=== PATIENT | male | born 1935 | race Caucasian/White ===

== ENCOUNTER 2021-01-29 22:35 | Inpatient (IN) ==
[2021-01-29] MEDS ORDERED: ONDANSETRON 4 MG/2 ML VIAL IV PRN (22:51)
[2021-01-29] MEDS ORDERED: PANTOPRAZOLE 40 MG VIAL IV ONE (22:51)
--- NOTE | 2021-01-29 22:51 | Emergency Department Note ---
HPI General Chief complaint: Rectal Bleed Stated complaint: rectal bleeding Time Seen by Provider: 01/29/21 22:39 Source: EMS Mode of arrival: EMS Limitations: no limitations History of Present Illness HPI Narrative: Narrative: Patient is an 85-year-old male who presents with chief complaint of GI bleed. Patient presented to the emergency department via EMS after he had a large dark tarry stool and coffee-ground emesis at home. Patient was seen here earlier today for hemoptysis, had a negative work-up for PE and was diagnosed with possible pneumonia and discharged home. He did not have any other episodes or other complaints of GI bleeding issues before that, but upon return here this evening he had dark tarry stool and coffee-ground emesis consistent with likely GI bleed. He states he otherwise feels fine has no complaints. Denies any fever, headache, cough, shortness of breath, chest pain, abdominal pain, changes in urinary habits. Related Data Home Medications Medication Instructions Recorded Confirmed multivitamin 1 tab-cap PO QDAY 05/25/15 01/29/21 aspirin 81 mg tablet,delayed 81 mg PO QDAY 07/16/17 01/29/21 release dextrin [Fiber (dextrin)] See Rx Instructions PO .COMPLEX 07/16/17 01/29/21 omega 2-btq-nsd-fish oil [Severn-3 PO 07/16/17 01/29/21 Fish Oil] stool softner PO 07/16/17 01/29/21 hydrocortisone-pramoxine 2.5 %-1 % 1 applic TOPICAL g 10/30/20 01/29/21 rectal cream atorvastatin 20 mg tablet 20 mg PO QDAY 11/07/20 01/29/21 donepezil 10 mg tablet See Rx Instructions PO QDAY tab 11/07/20 01/29/21 memantine 21 mg capsule mg PO QDAY ea 11/07/20 01/29/21 sprinkle,extended release 24hr csxhpfebbukl-pfdilhdc-yktaos PO QDAY 11/07/20 01/29/21 [Centrum Silver] nortriptyline 10 mg capsule mg PO QDAY cap 11/07/20 01/29/21 sennosides 8.6 mg-docusate sodium 2 tab-cap PO QAM tab 11/07/20 01/29/21 50 mg tablet (Senna with Docusate Sodium) tamsulosin 0.4 mg capsule mg PO QPM cap 11/07/20 01/29/21 Previous Rx's Medication Instructions Recorded omeprazole 40 mg capsule,delayed 40 mg PO QDAY #90 cap 07/16/17 release atorvastatin 80 mg tablet 40 mg PO QDAY #45 tab 08/17/17 hydrocodone 5 mg-acetaminophen 325 1 tab PO Q4H PRN #60 tab MDD 2.5 12/05/20 mg tablet doxycycline hyclate 100 mg capsule 100 mg PO BID 7 Days #14 cap 01/29/21 Allergies Allergy/AdvReac Type Severity Reaction Status Date / Time No Known Drug Allergies Allergy Verified 01/29/21 15:40 Review of Systems ROS ROS Narrative: Narrative: All systems ED: reviewed and negative except as stated. 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) Encounter for Postoperative Care (Chronic) URI (upper respiratory infection) (Chronic) Low back pain (Chronic) Exposure to COVID-19 virus (Chronic) Osteoporosis (Chronic) Constipation (Chronic) Rheumatic fever (Chronic) Peptic ulcer disease (Chronic) Hypertension, essential (Chronic) Hyperlipidemia (Chronic) Hemorrhoids (Chronic) COPD (chronic obstructive pulmonary disease) (Chronic) Medical History Age-related osteoporosis with current pathological fracture, vertebra(e), initial encounter for fracture BPH (benign prostatic hyperplasia) Constipation COPD (chronic obstructive pulmonary disease) Displacement of lumbar intervertebral disc without myelopathy Encounter for Postoperative Care Exposure to COVID-19 virus Gastroesophageal reflux (06/03/13) Hematochezia (12/22/12) Hemorrhoids Uncomplicated, internal and external Hyperlipidemia Hypertension, essential Low back pain Memory impairment Osteoporosis Peptic ulcer disease Personal history of colonic polyps Rectal bleeding Rheumatic fever As a child Thoracolumbar back pain Unilateral inguinal hernia URI (upper respiratory infection) Vascular dementia Surgical History H/O colonoscopy (05/18/14) Dr. Jean Baptiste - 2015 H/O esophagogastroduodenoscopy (05/18/12) Dos Santos's, ? dysplasia, Schatzki's ring H/O hemorrhoidectomy (01/03/13) Prolapsed internal hemorrhoids, grade 3 History of hernia surgery 08/17/2015 right inguinal with mesh graft History of right inguinal hernia repair (08/17/15) History of tonsillectomy and adenoidectomy 194 Hx of appendectomy 1950 Family History Mother Malignant neoplasm of bone History of open heart surgery Cardiac disease Father Cardiac disease History of open heart surgery Neoplasm of lung brother Cerebrovascular accident (CVA) Social History Smoking Status: Former smoker Alcohol Intake Frequency: a few times a month Substance Use: does not use Exam Narrative Narrative: Narrative: Patient is sitting up in bed, talking normally and appropriately. He does not appear to be in acute discomfort or distress General Limitations: no limitations Head Head: Present atraumatic and normocephalic Eye Eye: Present normal appearance, PERRL and EOMI; Absent scleral icterus or conjunctival injection ENT ENT: Present normal oropharynx and mucous membranes moist Neck Neck: Present full ROM and trachea midline; Absent tenderness or lymphadenopathy Chest Chest: Present symmetric chest wall rise Respiratory Respiratory: Present normal lung sounds bilaterally; Absent respiratory distress, rales/crackles, wheezes, stridor or accessory muscle use Cardiovascular Cardiovascular: Present regular rate and normal rhythm; Absent systolic murmur or diastolic murmur Adbominal Abdominal: Present soft; Absent tenderness, guarding, rebound, rigidity or mass Extremities Extremities: Absent pedal edema, pretibial edema or calf tenderness Back Back: Absent CVA tenderness (R), CVA tenderness (L) or spinous process tenderness Neurological Neurological: Present alert and oriented X3 Psychiatric Psychiatric: Present normal affect and normal mood Skin Skin: Present warm (WNL) and dry Course Vital Signs Vital signs: Vital Signs Temperature 97.6 F 01/29/21 22:35 Pulse Rate 125 H 01/29/21 22:35 Respiratory Rate 18 01/29/21 22:35 Blood Pressure 103/75 01/29/21 22:35 Pulse Oximetry (%) 96 01/29/21 22:35 Temperature 97.6 F 01/29/21 22:35 Pulse Rate 125 H 01/29/21 22:35 Respiratory Rate 18 01/29/21 22:35 Blood Pressure 103/75 01/29/21 22:35 Pulse Oximetry (%) 96 01/29/21 22:35 MDM MDM Narrative Medical decision making narrative: Narrative: Patient presented with history of physical exam concerning for possible GI bleed. At this time patient has obvious smell of GI bleed and dark tarry stool noted. Abdominal exam is benign with no significant rebound or guarding. He does have some mild tachycardia in the 110s to 120s, but otherwise is very well- appearing. He does not have any abdominal pain, and states he is otherwise comfortable. I discussed the case with the on-call surgeon Dr. Lyle, who agreed with the plan of admission at this time to do a scope tomorrow to evaluate his GI bleeding. We have given the patient Protonix and type and crossed the patient for packed red blood cells as directed by the surgeon, and he will be admitted overnight until he can be further evaluated. Patient is agreeable to the plan at this time and has no further concerns or questions Discharge Plan Patient/Caregiver Discharge Instructions Pt seen by BANDER/PA only: No Clinical Impression: GI bleed Patient Disposition: Xfer As Inpt ([facility]) Follow up with: Bobo Marshall MD [Primary Care Provider] - Prescriptions: No Action atorvastatin 80 mg tablet 40 mg PO QDAY Qty: 45 3RF multivitamin tablet 1 tab-cap PO QDAY 0RF aspirin 81 mg tablet,delayed release (DR/EC) 81 mg PO QDAY 0RF dextrin See Rx Instructions PO .COMPLEX 0RF Label Comments: PO BID Rx Instructions: PO BID omega 1-afc-jjr-fish oil PO 0RF stool softner PO 0RF omeprazole 40 mg capsule,delayed release(DR/EC) 40 mg PO QDAY Qty: 90 3RF Rx Instructions: swallow whole; do not crush, chew, dissolve, cut, break atorvastatin 20 mg tablet 20 mg PO QDAY 0RF yuaturijjfmi-wyuhexua-vxdmzx [Centrum Silver] PO QDAY 0RF sennosides-docusate sodium [Senna with Docusate Sodium] 8.6-50 mg tablet 2 tab-cap PO QAM 0RF hydrocodone-acetaminophen 5-325 mg tablet 1 tab PO Q4H MDD 2.5 PRN (Reason: pain) Qty: 60 0RF Rx Instructions: Take one half to one tab po q4 hr prn pain *Must last 30 days* hydrocortisone-pramoxine 2.5-1 % cream 1 applic topical 0RF donepezil 10 mg tablet See Rx Instructions PO QDAY 0RF Rx Instructions: 10mg, 2 tabs PO daily; memantine 21 mg capsule,sprinkle,ER 24hr PO QDAY 0RF nortriptyline 10 mg capsule PO QDAY 0RF tamsulosin 0.4 mg capsule PO QPM 0RF doxycycline hyclate 100 mg capsule 100 mg PO BID 7 Days Qty: 14 0RF
[2021-01-29] MEDS ORDERED: 0.9 % SODIUM CHLORIDE 250 ML IV SCH (23:00)
[2021-01-30 00:20] LABS: INR 1.2 (0.9-1.1); Partial Thromboplastin Time 30.6 sec (20.0-37.0); Prothrombin Time 15.3 sec (11.9-14.5)
[2021-01-30] MEDS: 0.9 % SODIUM CHLORIDE 10 ML SYRINGE IV SCH ×3 (04:38→20:01)
[2021-01-30 09:09] LABS: Basophils # (Auto) 0.02 K/mcL (0.00-0.30); Basophils % (Auto) 0.2 % (0.0-2.0); Eosinophils # (Auto) 0 K/mcL (0.00-0.70); Eosinophils % (Auto) 0 % (0.0-7.0); Hemoglobin 10.3 g/dL (13.7-17.5); Lymphocytes # (Auto) 1.27 K/mcL (1.50-4.80); Lymphocytes % (Auto) 11.8 % (15.5-49.0); Mean Cell Volume 96.9 fL (80.0-100.0); Mean Corpuscular HGB Conc 33.2 g/dL (31.0-36.0); Mean Platelet Volume 11.3 fL (7.4-10.4); Monocytes # (Auto) 0.34 K/mcL (0.10-0.90); Monocytes % (Auto) 3.2 % (1.0-12.0); Neutrophils % (Auto) 84.8 % (38.0-78.0); Platelet Count 201 K/mcL (140-440); Red Cell Distribution Width 13.6 % (11.5-14.5); WBC 10.8 K/mcL (4.5-11.0)
[2021-01-30 09:21] LABS: Blood Urea Nitrogen 69 mg/dL (8-23); Calcium 9.3 mg/dL (8.6-10.4); Carbon Dioxide 19 mmol/L (22-30); Chloride 113 mmol/L (96-108); Glomerular Filtration Rate 61; Glucose 121 mg/dL (70-105)
[2021-01-30] MEDS: SUCRALFATE 1 GM/10 ML ORAL.SUSP PO SCH ×3 (09:28→20:00)
[2021-01-30] MEDS: PANTOPRAZOLE 80 MG in 0.9 % SODIUM CHLORIDE 100 ML IV SCH ×2 (09:28→19:59)
[2021-01-30] MEDS: LACTATED RINGERS 1,000 ML IV SCH ×2 (09:29→18:08)
--- NOTE | 2021-01-30 09:36 | General Surg History&Physical ---
HPI History of Present Illness Patient information: Note initiated : 01/30/21 at 9:29 am Service Date, if different from initiated Date: [] Patient: Sameer Bowden a 85 y/o M admitted on 01/30/21 for rectal bleeding. Chief Complaint: [] Chief complaint: Upper GI bleeding History of present illness: Mr. Bowden is a 85 year old M who presented to the emergency room on early 29 January 2021 with complaint of hemoptysis. He had chest x-ray which showed some atelectasis and a CT angio of the chest which was nondiagnostic for pulmonary embolus. He is hemogram was stable so he was discharged home with a presumptive diagnosis of possible pneumonia. He developed coffee-ground emesis and passage of melena and was readmitted to the emergency room with presumptive GI bleed. Patient has been clinically stable and his hemoglobin was 12.5. Hemoglobin has dropped to 10 overnight. He is having some dark stools with some maroon-colored stools. He has been started on IV pantoprazole. Review of Systems All systems: reviewed and no additional remarkable complaints except as stated (Patient has significant dementia and does not answer questions appropriately) PFSH PFS All Active Problems (Updated 01/30/21 @ 09:35 by Le Lyle MD) Upper GI bleed (Acute) Hemoptysis (Acute) Dehydration (Acute) Pneumonia (Acute) GI bleed (Acute) Hemoptysis (Acute) Age-related osteoporosis with current pathological fracture, vertebra(e), initial encounter for fracture (Acute) Thoracolumbar back pain (Acute) BPH (benign prostatic hyperplasia) (Chronic) Memory impairment (Chronic) Vascular dementia (Chronic) 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) Encounter for Postoperative Care (Chronic) URI (upper respiratory infection) (Chronic) Low back pain (Chronic) Exposure to COVID-19 virus (Chronic) Osteoporosis (Chronic) Constipation (Chronic) Rheumatic fever (Chronic) Peptic ulcer disease (Chronic) Hypertension, essential (Chronic) Hyperlipidemia (Chronic) Hemorrhoids (Chronic) COPD (chronic obstructive pulmonary disease) (Chronic) Medical History Age-related osteoporosis with current pathological fracture, vertebra(e), initial encounter for fracture BPH (benign prostatic hyperplasia) Constipation COPD (chronic obstructive pulmonary disease) Displacement of lumbar intervertebral disc without myelopathy Encounter for Postoperative Care Exposure to COVID-19 virus Gastroesophageal reflux (06/03/13) Hematochezia (12/22/12) Hemorrhoids Uncomplicated, internal and external Hyperlipidemia Hypertension, essential Low back pain Memory impairment Osteoporosis Peptic ulcer disease Personal history of colonic polyps Rectal bleeding Rheumatic fever As a child Thoracolumbar back pain Unilateral inguinal hernia URI (upper respiratory infection) Vascular dementia Surgical History H/O colonoscopy (05/18/14) Dr. Jean Baptiste - 2015 H/O esophagogastroduodenoscopy (05/18/12) Dos Santos's, ? dysplasia, Schatzki's ring H/O hemorrhoidectomy (01/03/13) Prolapsed internal hemorrhoids, grade 3 History of hernia surgery 08/17/2015 right inguinal with mesh graft History of right inguinal hernia repair (08/17/15) History of tonsillectomy and adenoidectomy 1945 Hx of appendectomy 1950 Family History Mother Malignant neoplasm of bone History of open heart surgery Cardiac disease Father Cardiac disease History of open heart surgery Neoplasm of lung brother Cerebrovascular accident (CVA) Social History marital status: education level: high school occupational status: employed and retired smoking status: Former smoker alcohol intake frequency: a few times a month substance use type: does not use MEDS/ALLERGIES Home Medications and Allergies Home Medications Medication Instructions Recorded Confirmed Type multivitamin 1 tab-cap PO QDAY 05/25/15 01/30/21 History aspirin 81 mg tablet,delayed 81 mg PO QDAY 07/16/17 01/30/21 History release omega 3-wtw-vqn-fish oil [Dahinda-3 See Protocol PO DAILY 07/16/17 01/30/21 History Fish Oil] omeprazole 40 mg capsule,delayed 40 mg PO QDAY #90 cap 07/16/17 01/30/21 Rx release atorvastatin 20 mg tablet 20 mg PO QDAY 11/07/20 01/30/21 History donepezil 10 mg tablet See Rx Instructions PO QDAY tab 11/07/20 01/30/21 History ybnihtutuaqj-efpufpcf-vknmvl See Rx Instructions .ROUTE .COMPLEX 11/07/20 01/30/21 History [Centrum Silver] nortriptyline 10 mg capsule See Protocol PO QDAY cap 11/07/20 01/30/21 History doxycycline hyclate 100 mg capsule 100 mg PO BID 7 Days #14 cap 01/29/21 01/30/21 Rx Allergies Allergy/AdvReac Type Severity Reaction Status Date / Time No Known Drug Allergies Allergy Verified 01/29/21 15:40 Physical Examination Vital Signs Vital signs: Temp Pulse Resp BP Pulse Ox 98.0 F 104 H 18 114/81 98 01/30/21 08:00 01/30/21 08:00 01/30/21 08:00 01/30/21 08:00 01/30/21 08:00 General physical appearance General physical exam: well developed, well nourished, no distress, no pain and chronically ill Eyes Eye exam: PERRL and normal ocular movement ENT ENT exam: normal pinna, normal nares, normal mucosa, decreased hearing and poor fdc Head Head exam IM: Present atraumatic, normal inspection and normocephalic Neck Neck exam: no masses, no bruits, trachea midline, no lymphadenopathy and no venous distension Cardiovascular Cardiovascular exam IM: Present normal rate and rhythm, RRR, +S1 and +S2; Absent gallop or JVD Respiratory Respiratory exam: normal expansion, normal respiratory effort and clear to auscultation Abdomen Abdomen: Present soft, non tender and bowel sounds (Normal bowel sounds) Integumentary Integumentary: Present no rash, no growths and no abnormal pigmentation Neurologic Neurologic: Present normal coordination, normal sensation, disoriented, confused and memory loss Musculoskeletal Musculoskeletal: Present normal gait and normal posture Psychiatric Psychiatric: Absent oriented to time, oriented to person, oriented to place, speech is normal or memory intact Results Labs Result diagrams: 01/30/21 06:02 01/30/21 06:02 Labs: Abnormal lab results 01/29/21 01/30/21 01/30/21 Range/Units 23:23 06:02 06:02 RBC 3.20 L (4.63-6.08) M/mcL Hgb 10.3 L (13.7-17.5) g/dL Hct 31.0 L (40.1-51.0) % MPV 11.3 H (7.4-10.4) fL Neut % (Auto) 84.8 H (38.0-78.0) % Lymph % (Auto) 11.8 L (15.5-49.0) % Lymph # (Auto) 1.27 L (1.50-4.80) K/mcL Absolute Neutrophils 9.16 H (1.80-8.00) K/mcL PT 15.3 H (11.9-14.5) sec INR 1.2 H (0.9-1.1) Chloride 113 H (96-108) mmol/L Carbon Dioxide 19 L (22-30) mmol/L BUN 69 H (8-23) mg/dL Glucose 121 H (70-105) mg/dL Diabetes panel 01/30/21 Range/Units 06:02 Sodium 143 (133-145) mmol/L Potassium 4.4 (3.3-5.1) mmol/L Chloride 113 H (96-108) mmol/L Carbon Dioxide 19 L (22-30) mmol/L BUN 69 H (8-23) mg/dL Creatinine 1.1 (0.7-1.2) mg/dL Glucose 121 H (70-105) mg/dL Calcium 9.3 (8.6-10.4) mg/dL Calcium panel 01/30/21 Range/Units 06:02 Calcium 9.3 (8.6-10.4) mg/dL Pituitary panel 01/30/21 Range/Units 06:02 Sodium 143 (133-145) mmol/L Potassium 4.4 (3.3-5.1) mmol/L Chloride 113 H (96-108) mmol/L Carbon Dioxide 19 L (22-30) mmol/L BUN 69 H (8-23) mg/dL Creatinine 1.1 (0.7-1.2) mg/dL Glucose 121 H (70-105) mg/dL Calcium 9.3 (8.6-10.4) mg/dL Adrenal panel 01/30/21 Range/Units 06:02 Sodium 143 (133-145) mmol/L Potassium 4.4 (3.3-5.1) mmol/L Chloride 113 H (96-108) mmol/L Carbon Dioxide 19 L (22-30) mmol/L BUN 69 H (8-23) mg/dL Creatinine 1.1 (0.7-1.2) mg/dL Glucose 121 H (70-105) mg/dL Calcium 9.3 (8.6-10.4) mg/dL All other labs normal. A/P Assessment and plan (1) Upper GI bleed: Status: Acute (2) Vascular dementia: Status: Chronic (3) Hematochezia: Status: Resolved (4) Peptic ulcer disease: Status: Chronic (5) Hypertension, essential: Status: Chronic (6) COPD (chronic obstructive pulmonary disease): Status: Chronic Qualifiers: Emphysema type: unspecified Narrative A/P Narrative: Patient is started on IV pantoprazole He will be given Carafate 4 times daily His family member has been counseled for upper endoscopy which will be performed later today He will be transfused as needed Time Spent With Patient Time: Total time spent is greater than 50% in coordination of care (as documented) at patient's floor/unit and/or counseling patient:
[2021-01-30] MEDS ORDERED: GLYCOPYRROLATE 0.2 MG/ML VIAL IV ONE (14:14)
[2021-01-30] MEDS ORDERED: KETAMINE 50 MG/ML Syringe (ANEST) IV ONE (14:14)
[2021-01-30] MEDS ORDERED: PROPOFOL 200 MG/20 ML VIAL IV ONE (14:14)
--- NOTE | 2021-01-30 14:41 | Brief Operative Note ---
Brief Operative Note Date of procedure: 01/30/21 Pre-op diagnosis: upper gastrointestinal bleeding Post-op diagnosis: other (hiatal hernia ;distal esophagitis with ulceration;acute gastroduodenitis) Procedure: EGD Grafts/Implants: No Anesthesia: MAC Findings: SUPERFICIAL INFLAMMATION IN DISTAL ESOPHAGUS;LARGE HIATAL HERNIA WITH INFLAMMATION IN THE POUCH;INFLAMMATION OF ANTRUM AND DUODENAL BULB OLD BLOOD IN STOCH ;NO ACTIVE BLEEDING Complications: none Surgeon: Le Lyle Specimens Removed/Pathology: none sent Condition: stable Disposition: same day
[2021-01-30 17:38] LABS: Basophils # (Auto) 0.02 K/mcL (0.00-0.30); Basophils % (Auto) 0.2 % (0.0-2.0); Eosinophils # (Auto) 0 K/mcL (0.00-0.70); Eosinophils % (Auto) 0 % (0.0-7.0); Hematocrit 29.6 % (40.1-51.0); Hemoglobin 9.5 g/dL (13.7-17.5); Lymphocytes # (Auto) 1.38 K/mcL (1.50-4.80); Lymphocytes % (Auto) 14.8 % (15.5-49.0); Mean Cell Volume 97.7 fL (80.0-100.0); Mean Corpuscular HGB Conc 32.1 g/dL (31.0-36.0); Mean Platelet Volume 11.5 fL (7.4-10.4); Monocytes # (Auto) 0.56 K/mcL (0.10-0.90); Platelet Count 212 K/mcL (140-440); RBC 3.03 M/mcL (4.63-6.08); Red Cell Distribution Width 14.1 % (11.5-14.5); WBC 9.3 K/mcL (4.5-11.0)
[2021-01-30 18:57] LABS: Hematocrit 27.6 % (40.1-51.0); Hemoglobin 9.1 g/dL (13.7-17.5); Mean Cell Volume 97.2 fL (80.0-100.0); Mean Platelet Volume 10.8 fL (7.4-10.4); Platelet Count 198 K/mcL (140-440); RBC 2.84 M/mcL (4.63-6.08); Red Cell Distribution Width 14.1 % (11.5-14.5); WBC 9.7 K/mcL (4.5-11.0)
[2021-01-30 19:29] LABS: Anisocytosis 1+ (None Seen); Lymphocytes % 19 % (15-49); Monocytes % (Manual) 3 % (1-12); Platelet Estimate NORMAL (Normal); Polychromasia 1+ (None Seen); RBC Morphology ABNORMAL (Normal); Segmented Neutrophils % 78 % (38-78)
[2021-01-30] MEDS: TAMSULOSIN 0.4 MG CAPSULE PO SCH (20:00)
[2021-01-31] MEDS: SUCRALFATE 1 GM/10 ML ORAL.SUSP PO SCH ×4 (02:00→19:24)
[2021-01-31] MEDS: 0.9 % SODIUM CHLORIDE 10 ML SYRINGE IV SCH ×3 (05:11→20:44)
[2021-01-31] MEDS: PANTOPRAZOLE 80 MG in 0.9 % SODIUM CHLORIDE 100 ML IV SCH ×2 (06:31→16:57)
[2021-01-31] MEDS: LACTATED RINGERS 1,000 ML IV SCH ×2 (06:31→19:24)
[2021-01-31] MEDS: DONEPEZIL 10 MG TABLET PO SCH ×2 (06:38→07:53)
[2021-01-31] MEDS: NORTRIPTYLINE 10 MG CAPSULE PO SCH ×2 (06:39→07:54)
--- NOTE | 2021-01-31 13:07 | General Surgery Progress Note ---
SUBJECTIVE Subjective Patient information: Note initiated : 01/31/21 at 12:57 pm Service Date, if different from initiated Date: [] Patient: Sameer Bowden 85 y/o M admitted on 01/30/21 for rectal bleeding. Chief Complaint: [] Principal diagnosis: Upper GI bleeding; post hemorrhagic anemia Interval history: Patient has been clinically stable. He had a small amount of bright red with his morning bowel movement but he has not had melena. He denies hematemesis. He has tolerated full liquids without nausea. He denies abdominal pain. Hemoglobin 9.1; hematocrit 27.6. Pertinent ROS: Mental status remains the same No complaints of abdominal pain Mild low back pain Constitutional Vitals: Vital Signs Temp Pulse Resp BP Pulse Ox 98.6 F 93 H 18 123/69 98 01/31/21 06:17 01/31/21 06:17 01/31/21 06:17 01/31/21 06:17 01/31/21 06:17 Period Temp Pulse Resp BP Sys/Hernandez Pulse Ox Last 24 Hr 97.7 F-98.7 F 76-110 18-18 96-141/50-76 97-100 Intake and Output 01/30/21 01/31/21 01/31/21 21:59 05:59 13:59 Intake Total 9754 817 1160 Output Total 2 Balance 1077 98 1000 Weight 177 lb 4.2 oz Intake & Output: Intake & Output 01/30/21 01/31/21 01/31/21 21:59 05:59 13:59 Intake Total 1363 581 7231 Output Total 2 Balance 1077 98 1000 Weight 177 lb 4.2 oz Intake: IV 4586 434 9284 Sodium Chloride 0.9% 250 ml @ 250 20 mls/hr IV .[id number] TORI Rx#: [id number] Lactated Ringers 1,000 ml @ 84 727 1000 mls/hr IV .[id number] TORI Rx#: [id number] Protonix 80 mg In Sodium 100 100 Chloride 0.9% 100 ml @ 8 MG/HR 10 mls/hr IV Q10H TORI Rx#: [id number] Output: # of times incontinent of urine 2 Other: Urine Appearance Clear Clear Urine Color Bright Yellow # Voids 1 7 Head Head exam: Present atraumatic, normal inspection and normocephalic Eye Eye exam: Present EOMI Pupils: Present normal accommodation and PERRL ENT ENT exam: Present mucous membranes moist, normal exam and normal oropharynx Neck Neck exam: Present full ROM and normal inspection; Absent lymphadenopathy or tenderness Respiratory Respiratory exam: Present normal respiratory exam and CTAB; Absent rales, rhonchi or wheezes Cardiovascular Cardiovascular exam: Present normal rate and rhythm, RRR, +S1 and +S2; Absent JVD or systolic murmur GI/Abdominal GI/Abdominal exam: Present normal bowel sounds and soft; Absent distended, rebound or tenderness Extremities Exam Extremities exam: Present full ROM, normal inspection and neurovascular intact; Absent pedal edema or tenderness Neurological Exam Neurological exam: Present alert Additional comments: Mental status is altered but he is easily reoriented A/P Assessment and plan (1) Upper GI bleed: Status: Acute (2) Gastric ulcer: Status: Acute (3) Vascular dementia: Status: Chronic (4) Hypertension, essential: Status: Chronic (5) COPD (chronic obstructive pulmonary disease): Status: Chronic Qualifiers: Emphysema type: unspecified Narrative A/P Narrative: Continue pantoprazole and Carafate Full liquid diet with supplements Continue to follow hemoglobin and hematocrit Transfuse if needed Time Spent With Patient Time: Total time spent is greater than 50% in coordination of care (as documented) at patient's floor/unit and/or counseling patient:
[2021-01-31 13:47] LABS: Basophils # (Auto) 0.04 K/mcL (0.00-0.30); Basophils % (Auto) 0.5 % (0.0-2.0); Eosinophils # (Auto) 0.13 K/mcL (0.00-0.70); Eosinophils % (Auto) 1.5 % (0.0-7.0); Hematocrit 24.8 % (40.1-51.0); Hemoglobin 8.3 g/dL (13.7-17.5); Lymphocytes % (Auto) 21.7 % (15.5-49.0); Mean Cell Volume 100.4 fL (80.0-100.0); Mean Corpuscular HGB Conc 33.5 g/dL (31.0-36.0); Mean Platelet Volume 10.7 fL (7.4-10.4); Monocytes # (Auto) 0.41 K/mcL (0.10-0.90); Monocytes % (Auto) 4.7 % (1.0-12.0); Neutrophils % (Auto) 71.6 % (38.0-78.0); Platelet Count 176 K/mcL (140-440); RBC 2.47 M/mcL (4.63-6.08); Red Cell Distribution Width 14.1 % (11.5-14.5); WBC 8.8 K/mcL (4.5-11.0)
[2021-01-31 14:13] LABS: ALT/SGPT 17 U/L (<40); AST/SGOT 27 U/L (<40); Albumin 3.8 gm/dL (3.2-5.2); Albumin/Globulin Ratio 2.4 (1.0-2.3); Alkaline Phosphatase 71 U/L (39-117); Bilirubin,Direct < 0.2 mg/dL (0-0.3); Bilirubin,Total 0.5 mg/dL (0.1-1.0); Blood Urea Nitrogen 26 mg/dL (8-23); Carbon Dioxide 21 mmol/L (22-30); Chloride 109 mmol/L (96-108); Globulin 1.6 gm/dL (2.2-3.7); Glomerular Filtration Rate 69; Glucose 103 mg/dL (70-105); Lactate Dehydrogenase 142 U/L (135-225); Triglycerides 181 mg/dL (<150); Uric Acid 4.9 mg/dL (2.5-8.0)
[2021-01-31] MEDS: TAMSULOSIN 0.4 MG CAPSULE PO SCH (20:44)
[2021-02-01] MEDS: LACTATED RINGERS 1,000 ML IV SCH ×3 (03:20→22:02)
[2021-02-01] MEDS: SUCRALFATE 1 GM/10 ML ORAL.SUSP PO SCH ×4 (03:20→20:26)
[2021-02-01] MEDS: PANTOPRAZOLE 80 MG in 0.9 % SODIUM CHLORIDE 100 ML IV SCH ×2 (03:21→13:27)
[2021-02-01] MEDS: 0.9 % SODIUM CHLORIDE 10 ML SYRINGE IV SCH ×3 (05:53→21:40)
[2021-02-01 07:20] LABS: Basophils # (Auto) 0.02 K/mcL (0.00-0.30); Basophils % (Auto) 0.4 % (0.0-2.0); Eosinophils % (Auto) 3.5 % (0.0-7.0); Hematocrit 20.9 % (40.1-51.0); Hemoglobin 6.8 g/dL (13.7-17.5); Lymphocytes # (Auto) 1.69 K/mcL (1.50-4.80); Mean Cell Volume 98.6 fL (80.0-100.0); Mean Corpuscular HGB Conc 32.5 g/dL (31.0-36.0); Monocytes # (Auto) 0.32 K/mcL (0.10-0.90); Monocytes % (Auto) 5.7 % (1.0-12.0); Neutrophils % (Auto) 60.4 % (38.0-78.0); Platelet Count 144 K/mcL (140-440); RBC 2.12 M/mcL (4.63-6.08); Red Cell Distribution Width 13.8 % (11.5-14.5); WBC 5.6 K/mcL (4.5-11.0)
[2021-02-01] MEDS: DONEPEZIL 10 MG TABLET PO SCH (07:57)
[2021-02-01] MEDS: NORTRIPTYLINE 10 MG CAPSULE PO SCH (07:57)
[2021-02-01 08:04] LABS: ALT/SGPT 16 U/L (<40); AST/SGOT 26 U/L (<40); Albumin 3.1 gm/dL (3.2-5.2); Albumin/Globulin Ratio 1.9 (1.0-2.3); Alkaline Phosphatase 62 U/L (39-117); Bilirubin,Direct < 0.2 mg/dL (0-0.3); Bilirubin,Total 0.5 mg/dL (0.1-1.0); Blood Urea Nitrogen 19 mg/dL (8-23); Calcium 8.7 mg/dL (8.6-10.4); Carbon Dioxide 23 mmol/L (22-30); Chloride 108 mmol/L (96-108); Globulin 1.6 gm/dL (2.2-3.7); Glomerular Filtration Rate 69; Glucose 98 mg/dL (70-105); Lactate Dehydrogenase 121 U/L (135-225); Phosphorous 2.4 mg/dL (2.5-4.5); Triglycerides 144 mg/dL (<150); Uric Acid 4.8 mg/dL (2.5-8.0)
[2021-02-01] MEDS ORDERED: 0.9 % SODIUM CHLORIDE 250 ML IV SCH (08:15)
--- NOTE | 2021-02-01 13:35 | General Surgery Progress Note ---
SUBJECTIVE Subjective Patient information: Note initiated : 02/01/21 at 1:31 pm Service Date, if different from initiated Date: [] Patient: Sameer Bowden 85 y/o M admitted on 01/30/21 for rectal bleeding. Chief Complaint: [] Principal diagnosis: Upper GI bleeding; post hemorrhagic anemia Interval history: Patient is doing well. He has not had any bloody bowel movements or melena since yesterday. His hemoglobin has drifted down to 6.8 and he was transfused earlier this morning. He denies abdominal discomfort. Potassium 3.3, BUN 19, creatinine 1 White blood count 5.6, hemoglobin 6.8, hematocrit 20.9. Constitutional Vitals: Vital Signs Temp Pulse Resp BP Pulse Ox 98.6 F 72 16 124/74 98 02/01/21 11:53 02/01/21 11:53 02/01/21 11:53 02/01/21 11:53 02/01/21 11:53 Period Temp Pulse Resp BP Sys/Hernandez Pulse Ox Last 24 Hr 98.5 F-99.0 F 72-87 16-20 100-125/57-74 94-99 Intake and Output 01/31/21 02/01/21 02/01/21 21:59 05:59 13:59 Intake Total 1500 1166 100 Output Total 200 250 76 Balance 1300 916 24 Weight 173 lb 12.8 oz Intake & Output: Intake & Output 01/31/21 02/01/21 02/01/21 21:59 05:59 13:59 Intake Total 1500 1166 100 Output Total 200 250 76 Balance 1300 916 24 Weight 173 lb 12.8 oz Intake: IV 1100 766 100 Lactated Ringers 1,000 ml @ 84 1000 666 mls/hr IV .[id number] TORI Rx#: [id number] Protonix 80 mg In Sodium 100 100 100 Chloride 0.9% 100 ml @ 8 MG/HR 10 mls/hr IV Q10H TORI Rx#: [id number] Oral 400 400 Output: Void Amount 200 250 75 # of times incontinent of urine 1 Other: Meal Dinner Percent of Meal Consumed 75% Feeding Ability Assist with Tray Set Up Urine Appearance Clear Urine Color Bright Yellow Stool Size Smear Stool Color Brown # Voids 1 1 # Bowel Movements 1 Neck Neck exam: Present full ROM and normal inspection Respiratory Respiratory exam: Present normal respiratory exam and CTAB; Absent rales, rhonchi or wheezes Cardiovascular Cardiovascular exam: Present normal rate and rhythm, RRR, +S1 and +S2; Absent JVD GI/Abdominal GI/Abdominal exam: Present normal bowel sounds and soft; Absent tenderness Extremities Exam Extremities exam: Present full ROM, normal inspection and neurovascular intact Neurological Exam Neurological exam: Present alert and altered (Altered mentation due to chronic dementia) A/P Assessment and plan (1) Gastric ulcer: Status: Acute (2) Upper GI bleed: Status: Acute (3) Vascular dementia: Status: Chronic Narrative A/P Narrative: Replace potassium chloride Recheck hemoglobin hematocrit at 1800 and in a.m. Advance to GI soft diet Time Spent With Patient Time: Total time spent is greater than 50% in coordination of care (as documented) at patient's floor/unit and/or counseling patient:
[2021-02-01] MEDS: POTASSIUM CHLORIDE 40 MEQ in DEXTROSE 5% IN WATER 500 ML IV SCH ×2 (13:56→17:51)
[2021-02-01 19:10] LABS: Hemoglobin 8.5 g/dL (13.7-17.5)
[2021-02-01] MEDS: TAMSULOSIN 0.4 MG CAPSULE PO SCH (21:40)
[2021-02-02] MEDS: PANTOPRAZOLE 80 MG in 0.9 % SODIUM CHLORIDE 100 ML IV SCH ×4 (01:02→21:50)
[2021-02-02] MEDS: SUCRALFATE 1 GM/10 ML ORAL.SUSP PO SCH ×4 (01:48→19:07)
[2021-02-02] MEDS: LACTATED RINGERS 1,000 ML IV SCH ×2 (02:16→06:49)
[2021-02-02] MEDS: 0.9 % SODIUM CHLORIDE 10 ML SYRINGE IV SCH ×3 (04:51→21:50)
[2021-02-02 06:49] LABS: Basophils # (Auto) 0.02 K/mcL (0.00-0.30); Basophils % (Auto) 0.3 % (0.0-2.0); Eosinophils # (Auto) 0.41 K/mcL (0.00-0.70); Eosinophils % (Auto) 6.8 % (0.0-7.0); Hematocrit 25.3 % (40.1-51.0); Hemoglobin 8.4 g/dL (13.7-17.5); Lymphocytes % (Auto) 28.1 % (15.5-49.0); Mean Cell Volume 92.3 fL (80.0-100.0); Mean Corpuscular HGB Conc 33.2 g/dL (31.0-36.0); Mean Platelet Volume 11.1 fL (7.4-10.4); Monocytes # (Auto) 0.36 K/mcL (0.10-0.90); Neutrophils % (Auto) 58.8 % (38.0-78.0); Platelet Count 142 K/mcL (140-440); RBC 2.74 M/mcL (4.63-6.08); Red Cell Distribution Width 17.1 % (11.5-14.5); WBC 6.1 K/mcL (4.5-11.0)
[2021-02-02 07:12] LABS: ALT/SGPT 17 U/L (<40); AST/SGOT 24 U/L (<40); Albumin 3.3 gm/dL (3.2-5.2); Albumin/Globulin Ratio 2.2 (1.0-2.3); Alkaline Phosphatase 69 U/L (39-117); Bilirubin,Direct 0.2 mg/dL (<0.3); Bilirubin,Total 0.8 mg/dL (0.1-1.0); Blood Urea Nitrogen 11 mg/dL (8-23); Calcium 8.4 mg/dL (8.6-10.4); Carbon Dioxide 24 mmol/L (22-30); Chloride 109 mmol/L (96-108); Globulin 1.5 gm/dL (2.2-3.7); Glomerular Filtration Rate 69; Glucose 98 mg/dL (70-105); Lactate Dehydrogenase 119 U/L (135-225); Phosphorous 2.2 mg/dL (2.5-4.5); Triglycerides 113 mg/dL (<150); Uric Acid 4.5 mg/dL (2.5-8.0)
[2021-02-02] MEDS: DONEPEZIL 10 MG TABLET PO SCH (08:03)
[2021-02-02] MEDS: NORTRIPTYLINE 10 MG CAPSULE PO SCH (08:04)
[2021-02-02] MEDS ORDERED: POTASSIUM PHOSPHATE 40 MEQ in DEXTROSE 5% IN WATER 500 ML IV ONE (13:33)
--- NOTE | 2021-02-02 13:39 | General Surgery Progress Note ---
SUBJECTIVE Subjective Patient information: Note initiated : 02/02/21 at 1:34 pm Service Date, if different from initiated Date: [] Patient: Sameer Bowden 85 y/o M admitted on 01/30/21 for rectal bleeding. Chief Complaint: [] Principal diagnosis: Upper GI bleeding; post hemorrhagic anemia Interval history: Patient did well throughout the night. He has had some small amount of loose bowels which is dark stool mixed with brown stool. There is very minimal amount of bright red bleeding from his hemorrhoids. He denies abdominal pain. He is tolerating diet without difficulty. White blood count 6.1, hemoglobin 8.4, h ematocrit 25.3, BUN 11, creatinine 1, phosphorus 2.2 Constitutional Vitals: Vital Signs Temp Pulse Resp BP Pulse Ox 98.5 F 82 16 119/63 96 02/02/21 11:39 02/02/21 11:39 02/02/21 11:39 02/02/21 11:39 02/02/21 11:39 Period Temp Pulse Resp BP Sys/Hernandez Pulse Ox Last 24 Hr 97.3 F-98.9 F 68-85 14-18 114-139/63-82 95-99 Intake and Output 02/01/21 02/02/21 02/02/21 21:59 05:59 13:59 Intake Total 873 1106 340 Output Total 102 404 202 Balance 771 702 138 Weight 177 lb 11.2 oz Intake & Output: Intake & Output 02/01/21 02/02/21 02/02/21 21:59 05:59 13:59 Intake Total 873 1106 340 Output Total 102 404 202 Balance 771 702 138 Weight 177 lb 11.2 oz Intake: IV 673 706 100 Sodium Chloride 0.9% 250 ml @ 164 86 20 mls/hr IV .[id number] TOR[facility] Rx#: [id number] Protonix 80 mg In Sodium 100 100 Chloride 0.9% 100 ml @ 8 MG/HR 10 mls/hr IV Q10H [facility] Rx#: [id number] Potassium Chloride 40 Meq In 509 520 Dextrose 5% in Water 500 ml @ 130 mls/hr IV Q4H TORI Rx#: [id number] Oral 200 400 240 Output: Void Amount 100 400 200 # of times incontinent of urine 2 4 2 Other: Meal Dinner Breakfast Percent of Meal Consumed 100% 100% Feeding Ability Independent Urine Appearance Clear Clear Clear Urine Color Bright Yellow Bright Yellow Bright Yellow Stool Size Moderate Moderate Stool Color Black Brown Dark Red Blood Bright Red Blood Dark Red Blood Stool Consistency Soft Soft Nancy Formed Loose # Voids 1 1 1 # Bowel Movements 0 1 1 ENT ENT exam: Present normal exam and normal oropharynx Neck Neck exam: Present full ROM and normal inspection; Absent tenderness Respiratory Respiratory exam: Present normal respiratory exam and CTAB; Absent rhonchi or wheezes Cardiovascular Cardiovascular exam: Present normal rate and rhythm, RRR, +S1 and +S2; Absent gallop or JVD GI/Abdominal GI/Abdominal exam: Present normal bowel sounds and soft; Absent distended, guarding or tenderness Extremities Exam Extremities exam: Present normal capillary refill, normal inspection and neurovascular intact Neurological Exam Neurological exam: Present alert, normal gait and reflexes normal; Absent motor sensory deficit Psychiatric Psychiatric exam: Present normal affect and normal mood; Absent depressed Skin Skin exam: Present intact and normal color A/P Assessment and plan (1) Gastric ulcer: Status: Acute (2) Upper GI bleed: Status: Acute (3) Vascular dementia: Status: Chronic Narrative A/P Narrative: Patient is clinically stable. If he remains stable tomorrow he will be discharg ed home. There has been no significant change in his hemoglobin. BUN is normal suggesting no absorption of blood from the GI tract Saline lock IV;potassium phosphate rider x2 Time Spent With Patient Time: Total time spent is greater than 50% in coordination of care (as documented) at patient's floor/unit and/or counseling patient:
[2021-02-02 14:31] LABS: Basophils # (Auto) 0.02 K/mcL (0.00-0.30); Basophils % (Auto) 0.3 % (0.0-2.0); Eosinophils # (Auto) 0.33 K/mcL (0.00-0.70); Eosinophils % (Auto) 5.7 % (0.0-7.0); Hematocrit 25.6 % (40.1-51.0); Hemoglobin 8.8 g/dL (13.7-17.5); Lymphocytes # (Auto) 1.22 K/mcL (1.50-4.80); Mean Cell Volume 93.1 fL (80.0-100.0); Mean Corpuscular HGB Conc 34.4 g/dL (31.0-36.0); Mean Platelet Volume 11.2 fL (7.4-10.4); Monocytes # (Auto) 0.37 K/mcL (0.10-0.90); Monocytes % (Auto) 6.4 % (1.0-12.0); Neutrophils % (Auto) 66.6 % (38.0-78.0); Platelet Count 151 K/mcL (140-440); RBC 2.75 M/mcL (4.63-6.08); Red Cell Distribution Width 16.9 % (11.5-14.5); WBC 5.8 K/mcL (4.5-11.0)
[2021-02-02] MEDS: TAMSULOSIN 0.4 MG CAPSULE PO SCH (20:05)
[2021-02-03] MEDS: SUCRALFATE 1 GM/10 ML ORAL.SUSP PO SCH ×3 (01:52→13:36)
[2021-02-03] MEDS: 0.9 % SODIUM CHLORIDE 10 ML SYRINGE IV SCH ×2 (04:05→13:41)
[2021-02-03] MEDS: DONEPEZIL 10 MG TABLET PO SCH (08:05)
[2021-02-03] MEDS: NORTRIPTYLINE 10 MG CAPSULE PO SCH (08:05)
[2021-02-03] MEDS: PANTOPRAZOLE 80 MG in 0.9 % SODIUM CHLORIDE 100 ML IV SCH (08:06)
[2021-02-03 08:34] LABS: Basophils # (Auto) 0.01 K/mcL (0.00-0.30); Basophils % (Auto) 0.2 % (0.0-2.0); Eosinophils # (Auto) 0.25 K/mcL (0.00-0.70); Eosinophils % (Auto) 5.7 % (0.0-7.0); Hematocrit 25.5 % (40.1-51.0); Hemoglobin 8.5 g/dL (13.7-17.5); Lymphocytes # (Auto) 1.32 K/mcL (1.50-4.80); Lymphocytes % (Auto) 30.1 % (15.5-49.0); Mean Cell Volume 92.7 fL (80.0-100.0); Mean Corpuscular HGB Conc 33.3 g/dL (31.0-36.0); Mean Platelet Volume 10.4 fL (7.4-10.4); Monocytes # (Auto) 0.29 K/mcL (0.10-0.90); Monocytes % (Auto) 6.6 % (1.0-12.0); Neutrophils % (Auto) 57.4 % (38.0-78.0); Platelet Count 148 K/mcL (140-440); RBC 2.75 M/mcL (4.63-6.08); Red Cell Distribution Width 16.5 % (11.5-14.5); WBC 4.4 K/mcL (4.5-11.0)
[2021-02-03 09:26] LABS: ALT/SGPT 17 U/L (<40); AST/SGOT 21 U/L (<40); Albumin 3.1 gm/dL (3.2-5.2); Albumin/Globulin Ratio 1.7 (1.0-2.3); Alkaline Phosphatase 76 U/L (39-117); Bilirubin,Total 0.6 mg/dL (0.1-1.0); Blood Urea Nitrogen 8 mg/dL (8-23); Calcium 8.5 mg/dL (8.6-10.4); Carbon Dioxide 25 mmol/L (22-30); Chloride 107 mmol/L (96-108); Globulin 1.8 gm/dL (2.2-3.7); Glomerular Filtration Rate 61; Glucose 102 mg/dL (70-105)
--- NOTE | 2021-02-03 13:31 | Discharge Summary ---
Discharge Provider Provider Patient information: Note initiated : 02/03/21 at 1:30 pm Service Date, if different from initiated Date: [] Patient: Sameer Bowden 85 y/o M admitted on 01/30/21 for rectal bleeding. Chief Complaint: [] Date of admission: 01/30/21 00:10 Discharge date: 02/03/21 Primary care physician: Bobo Marshall Admitting clinician: Le Lyle Attending physician on admission: Le Lyle Consults: 01/29/21 Consult to Physician [CONS] Stat Comment: already talked to him Consulting Provider: Le Lyle Reason For Exam: Physician to Consult Attending physician on discharge: Le Lyle Discharging clinician: Le Lyle COURSE Hospital Course Hospital course: 85-year-old male developed melena with emesis of coffee-ground material on the evening of 29 January. He was admitted on 30 January when he presented to the emergency room with this history. Hemoglobin had dropped from 12-10 started on IV fluids and pantoprazole. He had upper endoscopy which showed 2 ulcerations at the GE junction with old blood but no evidence of active bleeding. He also had some distal esophagitis and antral gastritis. Patient has been continued on pantoprazole and Carafate. His hemoglobin has been stable at 8.5 for the past 3 days. His stools are now brown except for occasional smear of bright red blood which comes from hemorrhoids. He has tolerated diet without difficulty. Patient is clinically stable and will be discharged home with instructions not to use any NSAID products and to continue the pantoprazole and Carafate for the next 6 months. I will follow him up in-year-old in 1 week Discharge diagnosis: Upper GI bleeding Secondary discharge diagnosis: Gastric ulcer Post bleeding anemia Chronic back pain Vascular dementia hypertension chronic obstructive lung disease Reason for admission: Upper GI bleeding Procedures: Esophagogastroduodenoscopy on 30 January 2021 Pertinent studies/significant findings: None Complications: None Time Spent with Patient Time attestation: Total time spent providing and/or coordinating discharge services: Physical Examination Vital Signs Vital signs: Temp Pulse Resp BP Pulse Ox 97.4 F 71 16 113/68 96 02/03/21 11:32 02/03/21 11:32 02/03/21 11:32 02/03/21 11:32 02/03/21 11:32 General physical appearance General physical exam: well developed, well nourished, no distress and no pain Eyes Eye exam: PERRL and normal ocular movement ENT ENT exam: normal mucosa, decreased hearing and poor correction Head Head exam IM: Present atraumatic, normal inspection and normocephalic Neck Neck exam: no masses, no bruits, trachea midline, no lymphadenopathy and no venous distension Cardiovascular Cardiovascular exam IM: Present normal rate and rhythm, RRR, +S1 and +S2; Absent JVD Respiratory Respiratory exam: normal expansion, normal respiratory effort and clear to auscultation Abdomen Abdomen: Present soft, non tender and bowel sounds (Normal bowel sounds); Absent organomegaly Rectum Rectum: Present normal sphincter tone Integumentary Integumentary: Present no rash, no growths and no abnormal pigmentation Neurologic Neurologic: Present normal coordination, normal sensation and other (Moderate cognitive dementia) Musculoskeletal Musculoskeletal: Present normal gait and normal posture Psychiatric Psychiatric: Present other (Cognitive dementia) Discharge Plan Patient/Caregiver Discharge Instructions Activity: increase activity as tolerated Diet: Regular Diet Instructions: Gastrointestinal Bleeding (DC) Prescriptions: New tramadol [Ultram] 50 mg tablet 50 mg PO TID PRN (Reason: pain) Qty: 90 0RF pantoprazole 40 mg tablet,delayed release (DR/EC) 40 mg PO BIDAC Qty: 60 5RF sucralfate [Carafate] 1 gram tablet 1 g PO Q6H Qty: 120 3RF ferrous sulfate 325 mg (65 mg iron) tablet,delayed release (DR/EC) 325 mg PO BID Qty: 60 3RF Continued multivitamin tablet 1 tab-cap PO QDAY 0RF aspirin 81 mg tablet,delayed release (DR/EC) 81 mg PO QDAY 0RF omega 4-acg-yio-fish oil See Protocol % PO DAILY 0RF Protocol: Age Greater than 75 Protocol Text: Age less than 75 years, to be administred with initial in subcutaneous dose atorvastatin 20 mg tablet 20 mg PO QDAY 0RF [id number] [Centrum Silver] See Rx Instructions .ROUTE .COMPLEX 0RF Rx Instructions: take 2 gummies daily donepezil 10 mg tablet See Rx Instructions PO QDAY 0RF Rx Instructions: 10mg, 2 tabs PO daily; nortriptyline 10 mg capsule See Protocol mg PO QDAY 0RF Protocol: Age Greater than 75 Protocol Text: Age less than 75 years, to be administred with initial in subcutaneous dose tamsulosin 0.4 mg capsule 0.4 mg PO QPM 0RF Discontinued omeprazole 40 mg capsule,delayed release(DR/EC) 40 mg PO QDAY Qty: 90 3RF Rx Instructions: swallow whole; do not crush, chew, dissolve, cut, break Follow Up Plan Follow up with: Bobo Marshall MD [Primary Care Provider] - Le Lyle MD [Physician] - (Office visit 1 week from tomorrow Contact the office tomorrow to schedule an appointment time ) Patient Disposition: Home Health Service Prognosis: Good Rehab Potential: Good I certify that the patient requires SNF services: No Overall status at discharge: patient is progressing back to baseline Discharge Orders: Discharge Order (Routine); Ordered 02/03/21 Ordered By: Le Lyle Pending Pending Pending: Resuscitation Status Resuscitate (Full Code) Diet GI Soft/Transitional Start ThuFeb 02 1404 Donepezil HCl (Donepezil 10 Mg Tablet) 20 mg PO QDAY Critical access hospital Admin: 02/03/21 08:05 Dose: 20 mg Documented by: Admin: 02/02/21 08:03 Dose: 20 mg Documented by: Admin: 02/01/21 07:57 Dose: 20 mg Documented by: Admin: 01/31/21 07:53 Dose: Not Given Documented by: JUAN R Admin: 01/31/21 06:38 Dose: 20 mg Documented by: JUAN R Pantoprazole Sodium 80 mg/ (Sodium Chloride) 100 mls @ 10 mls/hr IV Q10H Critical [facility] hospital Admin: 02/03/21 08:06 Dose: 8 mg/hr, 10 mls/hr Documented by: Infusion: 02/02/21 22:32 Dose: 8 mg/hr, 10 mls/hr Documented by: Admin: 02/02/21 21:50 Dose: Not Given Documented by: Admin: 02/02/21 12:22 Dose: 8 mg/hr, 10 mls/hr Documented by: Infusion: 02/02/21 12:16 Dose: 8 mg/hr, 10 mls/hr Documented by: Admin: 02/02/21 02:16 Dose: 8 mg/hr, 10 mls/hr Documented by: Admin: 02/02/21 01:02 Dose: Not Given Documented by: Infusion: 02/01/21 23:27 Dose: 8 mg/hr, 10 mls/hr Documented by: Admin: 02/01/21 13:27 Dose: 8 mg/hr, 10 mls/hr Documented by: Infusion: 02/01/21 13:21 Dose: 8 mg/hr, 10 mls/hr Documented by: Admin: 02/01/21 03:21 Dose: 8 mg/hr, 10 mls/hr Documented by: Infusion: 02/01/21 02:57 Dose: 8 mg/hr, 10 mls/hr Documented by: Admin: 01/31/21 16:57 Dose: 8 mg/hr, 10 mls/hr Documented by: Infusion: 01/31/21 16:31 Dose: 8 mg/hr, 10 mls/hr Documented by: Admin: 01/31/21 06:31 Dose: 8 mg/hr, 10 mls/hr Documented by: JUAN R Infusion: 01/31/21 05:59 Dose: 0 mg/hr, 0 mls/hr Documented by: JUAN R Admin: 01/30/21 19:59 Dose: 8 mg/hr, 10 mls/hr Documented by: Infusion: 01/30/21 19:58 Dose: 8 mg/hr, 10 mls/hr Documented by: Admin: 01/30/21 09:28 Dose: 8 mg/hr, 10 mls/hr Documented by: GARY Nortriptyline HCl (Nortriptyline 10 Mg Capsule) 10 mg PO QDAY Critical access hospital Admin: 02/03/21 08:05 Dose: 10 mg Documented by: Admin: 02/02/21 08:04 Dose: 10 mg Documented by: Admin: 02/01/21 07:57 Dose: 10 mg Documented by: Admin: 01/31/21 07:54 Dose: Not Given Documented by: JUAN R Admin: 01/31/21 06:39 Dose: 10 mg Documented by: JUAN R Ondansetron HCl (Ondansetron 4 Mg/2 Ml Vial) 4 mg IV Q6HP PRN PRN Reason: Nausea And Vomiting Last Admin: 02/02/21 08:04 Dose: 4 mg Documented by: WILMER Sodium Chloride (0.9 % Sodium Chloride 10 Ml Syringe) 10 ml IV Q8 Critical access hospital Admin: 02/03/21 04:05 Dose: Not Given Documented by: Admin: 02/02/21 21:50 Dose: Not Given Documented by: Admin: 02/02/21 13:48 Dose: Not Given Documented by: Admin: 02/02/21 04:51 Dose: Not Given Documented by: Admin: 02/01/21 21:40 Dose: Not Given Documented by: Admin: 02/01/21 13:45 Dose: Not Given Documented by: Admin: 02/01/21 05:53 Dose: Not Given Documented by: Admin: 01/31/21 20:44 Dose: 10 ml Documented by: Admin: 01/31/21 16:52 Dose: 10 ml Documented by: Admin: 01/31/21 05:11 Dose: Not Given Documented by: Admin: 01/30/21 20:01 Dose: Not Given Documented by: Admin: 01/30/21 13:01 Dose: Not Given Documented by: Admin: 01/30/21 04:38 Dose: Not Given Documented by: BRAYAN Sucralfate (Sucralfate 1 Gm/10 Ml Oral.Susp) 1 gm PO Q6H Critical access hospital Admin: 02/03/21 08:06 Dose: 1 gm Documented by: Admin: 02/03/21 01:52 Dose: 1 gm Documented by: Admin: 02/02/21 19:07 Dose: 1 gm Documented by: Admin: 02/02/21 13:38 Dose: 1 gm Documented by: Admin: 02/02/21 08:03 Dose: 1 gm Documented by: Admin: 02/02/21 01:48 Dose: 1 gm Documented by: Admin: 02/01/21 20:26 Dose: 1 gm Documented by: Admin: 02/01/21 13:27 Dose: 1 gm Documented by: Admin: 02/01/21 07:57 Dose: 1 gm Documented by: Admin: 02/01/21 03:20 Dose: 1 gm Documented by: Admin: 01/31/21 19:24 Dose: 1 gm Documented by: Admin: 01/31/21 16:52 Dose: 1 gm Documented by: Admin: 01/31/21 06:38 Dose: 1 gm Documented by: JUAN R Admin: 01/31/21 02:00 Dose: 1 gm Documented by: Admin: 01/30/21 20:00 Dose: 1 gm Documented by: Admin: 01/30/21 15:58 Dose: 1 gm Documented by: Admin: 01/30/21 09:28 Dose: 1 gm Documented by: GARY Tamsulosin HCl (Tamsulosin 0.4 Mg Capsule) 0.4 mg PO QPM TORI Last Admin: 02/02/21 20:05 Dose: 0.4 mg Documented by: Admin: 02/01/21 21:40 Dose: 0.4 mg Documented by: Admin: 01/31/21 20:44 Dose: 0.4 mg Documented by: Admin: 01/30/21 20:00 Dose: 0.4 mg Documented by: CINDY Shift Summary 02/03/21 03:38 Shift Summary by Shaniqua Ortega Primary Diagnosis: GI bleed - hemoptysis, coffee ground emesis, melena stool. Registration Status: M/S Day of Hospitalization: 01/30 Date of Surgery (if applicable): 01/30 EGD - large hiatal hernia, distal esophagitis w/ ulcer, acute gastroduodenitis. Pertinent Medical Hx: Dementia, [place]Y [place], Kyphosis, back pain, BPH, PUD, HTN, hemorrhoids, Vital Signs : VSS on RA Neuro: A&OX2, person & place. Requires reorienting & redirecting. Pleasant, cooperative. Amb status: SBA to push IV pole. Steady gait. Diet: GI soft. PRN meds : none this shift. Lines/Tubes: Protonix gtt @ 8mg/hr, 10ml/hr into RFA. Lab/Rad results: Hgb after 2 UPRBC - 8.8. Next Hgb @ 0500. Void / BM: Voiding per toilet, brief on for dribbling. No BM this shift. slow drip bright red blood from large hemorrhoids. Recommendations/questions for MD (DC Cornell? DC CM? PICC needed?): Expected date of discharge: Possibly today, 02/03 Discharge Plan (needs, disposition, etc): CM working w/ daughters to arrange for care. Initialized on 02/03/21 03:38 - END OF NOTE
--- NOTE | 2021-02-06 15:07 | EGD Procedure Note ---
Date of procedure--- 01/30/2021 PREOPERATIVE DIAGNOSIS: Upper gastrointestinal bleeding. POSTOPERATIVE DIAGNOSES: Hiatal hernia, distal esophagitis with ulceration and acute gastroduodenitis. PROCEDURE: Esophagogastroduodenoscopy. SURGEON: Le Lyle M.D. FINDINGS: Superficial inflammation in the distal esophagus; large hiatal hernia with inflammation in the hernia pouch; inflammation of the antrum and duodenal bulb; old blood in the stomach with no old blood extending into the distal duodenum. DESCRIPTION OF PROCEDURE: Under general anesthesia, the patient turned to the left lateral decubitus position. was placed. The scope was introduced and maneuvered into the esophagus. Proximal esophagus was unremarkable. There was mild inflammation of the distal esophagus with evidence of chronic esophagitis with a transverse ulcer at the GE junction. There was no active bleeding. There was acute inflammation of the stomach and duodenal bulb and second portion of the duodenum. Third portion of the duodenum was unremarkable. There was no fresh blood. However, there was some old blood in the stomach. Scope was pulled back. Retroflex view was done. The aforementioned ulcers were not biopsied. It appeared to be a standard inflammatory superficial ulcers with healing fibrinous bed. Irrigation was carried out. Air was suctioned from the stomach and the scope was removed. The patient tolerated the procedure well. He was awakened and transferred to same-day recovery in satisfactory condition. LCS:andre Job ID: [id number] Doc ID: [id number] Le Lyle M.D. MTDD
== END 2021-02-03 15:05 | disposition home health service (06) | DRG 379 ==
LOC: ED 22:35 → MEDSUR 01-30 00:10
PROVIDERS: ADMIT Family Medicine Adult Medicine; ATTEND Family Medicine Adult Medicine